=== PATIENT | male | born 1955 | race Caucasian/White ===

== ENCOUNTER 2024-07-05 13:28 | Outpatient (CLI) | payer MEDICARE, SELFPAY ==
--- NOTE | ~2024-07-05 | XR_ITS ---
EXAMINATION: XR lg joint inject/asp w image DATE: 07/05/2024 14:29 INDICATION: Primary osteoarthritis of the left hip TECHNIQUE: A time-out was performed to verify the patient's name, date of , and procedure to b e performed. The procedure including the risks, benefits, and alternatives was discussed with the pat ient. Risks discussed included bleeding and infection. The patient understood the risks and agreed to proceed. The skin overlying the left hip joint was prepped and draped in usual sterile fashion. An esthetic was administered with 1% lidocaine subcutaneously. A 22 G needle was advanced under fluoros copic guidance into the joint. Injection of 1 mL of Omnipaque 240 confirmed intra-articular position of the needle. Subsequently, injectate consisting of 5 mm a 4:1 mixture of 1% lidocaine: 80 mg/mL D epo-Medrol for a total dosage of 80 mg Depo-Medrol was instilled. Washout of contrast was seen confir mat intra-articular administration. The needle was removed and the entry site was cleaned and dresse d. There were no immediate complications. Fluoroscopy exposure time was 0.1 minutes. The total numbe r of images was 2. Total DAP was 1.1 Gycm^2 FINDINGS: Real-time fluoroscopy demonstrates the needle in the left hip joint. Patient's pain prior t o procedure:7/10. Patient's pain following the procedure: 0/10. IMPRESSION: 1. Successful left hip joint injection of local anesthetic and steroid with decrease in the patient's presenting pain. Reviewed, dictated and finalized at location A. IMPRESSION: 1. Successful left hip joint injection of local anesthetic and steroid with dec rease in the patient's presenting pain.
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
--- OUTSIDE RECORDS SUMMARY | 2024-07-05 13:41 | XMS_ITS | Data Portability ---
Author Organization [place] - [facility] [employer], Main Office Address [address] [place] [address] Assessment No assessment recorded. Plan of Treatment Reminders Order Date Submit Date Provider Last Modified By Organization Details Last Modified Time Details Appointments None record ed. Lab None record ed. Referral None record ed. Procedures None record ed. Surgeries None record ed. Imaging XR, ankle, 3 or more view 023 11/30/19 23 [facility], [address] [place] [address], [place], [address], 3 19:00:39 Medication Orders None record ed. Patient TargetsNo targets recorded. Patient InstructionsNo instructions recorded. Reason for Referral None Reported. Results Created Date Observation Date Name Description Value Unit Range Abnormal Flag Note LastModifiedBy Organization Detail LastModifiedTime 11/30/19 23 XR, ankle , 3 or more view [facility] [address] [facility] [place] [address] Patien t Name: DALJIT BURDEN Access ion #: [id number] Sex: M : 1955 2 Dictat ed By: Amanda Torres Attend ing Physic marilee: ELKHAT IB, RUNDA Orderi ng Physic marilee: ELKHAT IB, RUNDA Exam Date: 2022 14:05 PM Exam Name: XR ANKLE RT 3V+ Admitt ing Diagno sis(es ): CLINIC AL INDICA TION: Ankle pain TECHNI QUE: 3 radiog raphic views of the right ankle were obtain ed. Compar evaristo: None FINDIN GS: 0.7 cm ossifi c fragme ntatio n at the medial talar dome. The visual ized joint space is well mainta ined. The alignm ent is anatom ical. Soft tissue s are unrema rkable . IMPRES SCOTT: 0.7 cm OCD lesion at the medial talar dome. MRI could be obtain ed to [facility] janel gamino. Electr onical ly Signed by: Amanda Torres at 2022 17:59: 28 PM Page 1 [email or web address] [facility] (Imaging) [address] [place], [address], 11/30/2022 08:49:28 11/30/19 23 11/29/2022 XR, ankle , 3 or more view No observ ation record ed. [email or web address] [facility] [address] [place] [address], [address], 11/30/2022 18:03:30 04/02/19 25 04/02/2024 XR, knee, 3 view [facility] [address] [place], [place] [id number] Patien t Name: DALJIT BURDEN Access ion #: [id number] Sex: M : 1955 6 Locati on: RAD Attend ing Physic marilee: GEORGE MCNULTY Orderi Physic marilee: GEORGE MCNULTY Exam Date: 025 3:56 PM Exam Name: XR KNEE LT 3V Admitt ing Diagno sis(es ): RADIOL OGY REPORT - FINAL EXAM: XR KNEE LT 3V HISTOR Y: lt knee pain 68-yea r-old male with left knee pain and stiffn ess, histor y of menisc al tear 8 years ago, limite d range of motion . COMPAR EVARISTO: Radiog raphs dated 2016 TECHNI QUE: 3 views of the left knee were perfor med. FINDIN GS: No acute fractu re is identi fied about the left knee. There is medial compar tment joint space narrow ing. There are thick calcif icatio ns along the medial margin of the proxim al tibial metaph ysis. There is a parker ceps tendon insert ion enthes ophyte on the superi or pole of the patell a. There may be a small to modera te joint effusi on. Page 1 of 2 [facility] Patien t Name: DALJIT BURDEN Access ion #: [id number] Sex: M : 1955 6 Exam Date: 3:56 PM Exam Name: XR KNEE LT 3V Admitt ing Diagno sis(es ): IMPRES SCOTT: 1. No acute fractu re of the left knee. 2. Degene rative change s of the medial compar tment. 3. Sugges tion of old MCL injury . Create d and electr onical ly signed by: Guillermo ronquillo MD Signed Date: 4:29 PM (CT) Dictat ed by: Guillermo ronquillo MD DD: 4:29 PM (CT) DT: 4:29 PM (CT) Page 2 of 2 INTERFACE [facility] (Imaging) [address] [place], [address], 04/02/2024 17:31:53 04/02/19 25 04/02/2024 imagi ng/di vijayaos tic resul t No observ ation record ed. [facility] [address] [place], [address], 04/03/2024 00:04:24 Result Notes None recorded. Problems Name Problem SNOMED Code Status Onset Date Resolution Date Notes Provider Name and Address Organization Details Recorded Time History of calculus of kidney 378659300 Active 2022 Not Available [facility] 3 23:41:42 Pain of right ankle joint 40218001544699 106 Active 2022 Not Available [facility] 3 23:41:42 Problem Notes None recorded. Procedures Surgical History None recorded. Imaging Results Imaging Date Name Status LastModified by Organiz ation Details LastModified Time 11/29/2022 XR, ankle, 3 or more view completed [email or web address] (Imaging) [address] [place], [address], 11/30/2022 08:49:28 11/29/2022 XR, ankle, 3 or more view completed [email or web address] [facility] [address] [place] [address] Dr, [place], [address], 11/30/2022 18:03:30 04/02/2024 XR, knee, 3 view active INTERFACE [facility] (Imaging) [address] [place], [address], 04/02/2024 17:31:53 04/02/2024 imaging/diag nostic result active [facility] [address] [place], [address], 04/03/2024 00:04:24 Procedure Notes None recorded. Medical Equipment None Reported. Allergies Allergen ID Allergen Name Allergen Category Reaction Reaction Severity Criticality Documentation Date Start Date Code Code System Note Provider Name and Address Organization Details Recorded Time 05041 walnut allergeni c extract food Not available Not available Not available 04/20/2022 98184 0 RxNorm Not Available [facility] 3 07:35:38 19634 pecan nut food Not available Not available Not available 04/20/2022 71954 UNK Not Available [facility] 3 07:35:38 40320 cashew nut allergeni c extract food Not available Not available Not available 04/20/2022 97870 6 RxNorm Not Available [facility] 3 07:35:38 Medications Name Sig Start Date Stop Date Status Note LastModified by Organization Details LastModified Time sildenafil 100 mg tablet Take 1 tablet every day by oral route as needed. active Not Available Not Available No t Available omeprazole 20 mg capsule,obdulia yed release Take 1 capsule every day by oral route. active Not Available Not Available Not Avai lable Adult Low Dose Aspirin 81 mg tablet,delay ed release Take 1 tablet every day by oral route. active Not Available Not Available Not Avai lable magnesium active Not Available Not Available Not Avai lable loratadine 10 mg capsule Take by oral route. 020 active Not Available Not Available Not Avai lable Vitals Date Recorded Body weight Body mass index (BMI) Body height Body temperature Heart rate Oxygen saturation Oxygen saturation in Arterial blood by Pulse oximetry Systolic blood pressure Diastolic blood pressure Provider Name and Address Organization Details Last Updated DateTime 3 226906. 88 g 32.4 kg/m2 177.8 cm 97.5 [degF] 77 /min 97 % 97 % 138 mm[Hg] 82 mm[Hg] Anca perdomo CMA [facility] [employer] [facility] 14:38:06 Social History Question Answer Notes LastModified by [employer] Details LastModified Time Tobacco Smoking Status Never Smoker Anca Hernandez CMA null, [facility] [employer] [facility] 11/29/2022 14:41:10 What Is Your Level Of Caffeine Consumption? Heavy [email or web address] Information not available 11/29/2022 What Type Of Diet Are You Following? REGULAR [email or web address] Information not available 11/29/2022 Do You Have Any Dietary Restrictions? No [email or web address] Information not available 11/29/2022 Sex: Male Functional Status Question Answer Note LastModified by [employer] Details LastModified Time What is your level of alcohol consumption? Occasional [email or web address] Information not available 11/29/2022 What is your exercise level? Occasional [email or web address] Information not available 11/29/2022 Mental Status None recorded. Family History Relationship Description Onset Age of this Age Resolved Age Notes LastModified by Organization Details LastModified Time Father No current problems or disability [email or web address] Not available 1 14:39:48 Mother No current problems or disability [email or web address] Not available 1 14:39:48 Medical History No medical history recorded. Past Encounters Encounter ID Performer Location Encounter Start Date Encounter Closed Date Diagnosis/Indication Diagnosis SNOMED-CT Code Diagnosis ICD10 Code Diagnosis Note [id number] Delia Main MD [facility] [address] [place] [address] 11/29/2022 14:25:47 11/29/2022 14:56:50 Pain of right ankle joint [id number] 7958297 M25.571 Use ice/heat NSAIDs [facility] Health Concerns Section Related Observation LastModified by Organization Detai ls LastModified Time None Recorded Concern Status LastModified by Organization Details LastModified Time None Recorded Advance Directives Directive None Recorded Payers Encounter Date Sequence Insurance Name Policy Number Policy Gomez Covered Member ID Gomez Member ID Guarantor Name 11/29/2022 1 [facility] [id number] Daljit Araujo [id number] Daljit Araujo Notes Date Note Type Note Provider Name and Address Organization Details Recorded Time 11/29/2022 text/html Here today to re establish care. Right ankle is hurting and walks 8 miles at work 40 hours a week. If uses the scrub machine it vibrates it while pushing foot down on the pedal and it will hurt. No injury it just started to hurt. It is going on x 2 months. Taking vicoden for the pain and it helps. Uses rubs and does help.No other issues today Delia Main MD [address] [facility], [facility] [address], [place], [address], [place] - [facility] 11/29/2022 19:37:01
--- OUTSIDE RECORDS SUMMARY | 2024-07-05 13:41 | XMS_ITS | Referral Summary ---
Author Organization [facility] [address] [place] Address [address] [facility] 5th [place] [address] Care Team Providers Care Fuse Maker Name Role Phone Jagdish Zavala MD Primary Care Provider Allergies Active Allergy Reactions Criticality Noted Date Comments Fish Containing Products Swelling Medium 10/19/2011 Food Allergy Formula Swelling Medium 10/19/2011 All Nuts-Walnuts, Pecans, Cashews Medications aspirin 81 mg enteric coated tablet Take 1 tablet (81 mg total) by mouth daily Active omeprazole (PriLOSEC) 10 mg capsule Take 1 capsule (10 mg total) by mouth daily Active MULTIVITAMINS WITH FLUORIDE ORAL Take by mouth Active Active Problems Problem Noted Date Diagnosed Date Routine general medical exam ination at a health care facility 08/28/2023 Assessment & Plan (08/28/2023 4:50 PM CDT): Patient uses seatbelt. Patient said that he walks multiple miles on a daily basis. He does not smoke or drink alcohol. Patient said that he had colonoscopy in 2015. I do not have any record of that. He declined colonoscopy or colon cancer screening. Patient declined blood work but I ordered it in case he changes his mind. Patient declined all vaccines. Actinic keratoses 08/28/2023 Assessment & Plan (08/28/2023 4:49 PM CDT): Patient with actinic keratosis lesions in both forearms. I recommended that he sees a solution specialist for that but he declined. He understands that this condition is precancerous Immunizations Immunization Administration Dates Next Due Influenza, Quadrivalent, Spl it, Preservative Free, Intramuscular 10/18/2019,11/21/2016 Social History Tobacco Use Types Packs/Day Years Used Date Smoking Tobacco: Never Smokeless Tobacco: Never Tobacco Cessation:Counseling Given: Not Answered AUDIT-C Answer Date Recorded Q1: How often do you have a drink containing alc ohol? Monthly or less 08/28/2023 Q2: How many drinks containi ng alcohol do you have on a typical day when you are drinking? 1 or 2 08/28/2023 Q3: How often do you have si x or more drinks on one occasion? Never 08/28/2023 PHQ-2 Answer Date Recorded PHQ-2 Total Score (If total score is 3 or more points, staff should administer the PHQ-9) 0 08/28/2023 Personal Safety Answer Date Recorded Getting School Help Needed Not on file 07/24 Sex and Gender Information Value Date Recorded Sex Assigned at Not on file Legal Sex Male 1:50 PM CDT Gender Identity Not on file Sexual Orientation Not on file Last Filed Vital Signs Vital Sign Reading Time Taken Comments Blood Pressure 138/72 08/28/2023 4:08 PM CDT Pulse 70 08/28/2023 4:08 PM CDT Temperature 36.8 C (98.3 F) 08/28/2023 4:08 PM CDT Respiratory Rate 18 08/28/2023 4:08 PM CDT Oxygen Saturation 97% 08/28/2023 4:08 PM CDT Inhaled Oxygen Concentration - - Weight 103.9 kg (229 lb) 08/28/2023 4:08 PM CDT Height 177.8 cm (5' 10 ) 08/28/2023 4:08 PM CDT Body Mass Index 32.86 08/28/2023 4:08 PM CDT Plan of Treatment Not on file Insurance [facility] Care Teams Fuse Maker Relationship Specialty Start Date End Date Jagdish Zavala MD [address] [place] [address] [place] [address] PCP - General Internal Medicine 08/28/23
--- OUTSIDE RECORDS SUMMARY | 2024-07-05 13:41 | XMS_ITS | Clinical Summary ---
Author Organization [facility] [employer] Address [address] [place] [address] Care Team Providers Care Corporate Financial Analyst Name Role Phone Areli Epstein MD Primary Care Provider [phone] Source Comments [facility],non-owned Affiliates and Associated Physician Practices is amultiple site organization consisting of ambulatory clinics and hospital sitesin [place], [place], [place] and [place]. This disclosure is being madepursuant to the Care Everywhere program and may not contain all information available regarding this patient. Last updated 17.[facility] [employer] Allergies Active Allergy Reactions Criticality Noted Date Comments Fish Allergy 10/19/2011 Food Allergy Formula 10/19/2011 All Nuts-Walnuts, Pecans, Cashews Medications * Be aware that medications may not be up to date on this document. Alwaysverify current medications with the patient. omeprazole (PRILOSEC) 10 MG capsule Take 1 Cap by mouth once daily. Active divalproex DR (DEPAKOTE) 500 MG tabletIndicatio ns:Migraine headache without aura Take 1 Tab by mouth 2 times daily. 60 Tab 3 2 Active Additional Information Patient not taking.Reported on 03/29/2019 aspirin (ASPIRIN) 81 MG tablet Take 81 mg by mouth once daily Active magnesium 500 MG tablet Take 500 mg by mouth once daily Active loratadine (CLARITIN) 10 MG tablet Take 10 mg by mouth once daily Active Active Problems Problem Noted Date Diagnosed Date Migraine headache without aura 10/19/2011 Immunizations Immunization Administration Dates Next Due INFLUENZA VACCINE, QUADR. (F LUZONE; FLULAVAL; FLUARIX; AFLURIA QUADRIVALENT; 6MO+), 0.5 ML (IIV4) 10/18/2019,11/21/2016 Social History Tobacco Use Types Packs/Day Years Used Date Smoking Tobacco: Never Smokeless Tobacco: Never Alcohol Use Standard Drinks/Week Comments No 0 (1 standard drink = 0.6 oz pur e alcohol) Sex and Gender Information Value Date Recorded Sex Assigned at Not on file Legal Sex Male 2:07 PM COAT PADDER Gender Identity Not on file Sexual Orientation Not on file Last Filed Vital Signs Vital Sign Reading Time Taken Comments Blood Pressure 184/94 03/29/2019 4:27 PM COAT PADDER Pulse 79 03/29/2019 4:27 PM COAT PADDER Temperature 36.6 C (97.9 F) 03/29/2019 4:27 PM COAT PADDER Respiratory Rate 17 03/29/2019 4:27 PM COAT PADDER Oxygen Saturation 97% 03/29/2019 4:27 PM COAT PADDER Inhaled Oxygen Concentration - - Weight 95.3 kg (210 lb) 03/29/2019 4:27 PM COAT PADDER Height 177.8 cm (5' 10 ) 03/29/2019 4:27 PM COAT PADDER Body Mass Index 30.13 03/29/2019 4:27 PM COAT PADDER Plan of Treatment Health Maintenance Due Date Last Done Comments COLOGUARD (AGES 45-75) - COL ON CA SCREENING 1955 COLON MONITORING 1955 COLONOSCOPY - COLON CA SCREENING 1955 CT COLONOGRAPHY - COLON CA SCREENING 1955 Colorectal Cancer Screening 1955 FIT - COLON CA SCREENING 1955 FLEX SIG - COLON CA SCREENING 1955 LIPID TESTING 1955 HEPATITIS C SCREENING 10/18/1975 DTAP/TDAP/TD VACCINES (1 - Tdap) 1976 PNEUMOCOCCAL VACCINE 50+ (1 of 1 - PCV) 10/23/2007 ZOSTER VACCINE (1 of 2) 10/23/2007 SCREENING FOR DIABETES 03/29/2019 COVID-19 VACCINE (1 - 2023-2 5 season) 2023 DEPRESSION SCREENING 02/21/2024 INFLUENZA VACCINE (Season Ended) 2024 10/18/2019, 11/21/2016 Respiratory Syncytial Virus (RSV) Vaccine Pt: or over 60 yrs (1 - 1-dose 75+ series) 2032 HEPATITIS B VACCINE Aged Out No longe r eligible based on patient's age to complete this topic HIB VACCINE Aged Out No longer eligi ble based on patient's age to complete this topic HPV VACCINE Aged Out No longer eligi ble based on patient's age to complete this topic MENINGOCOCCAL (Group B) VACCINE SHARED DECISION-MAKING Aged Out No longer eligible based on patient's age to complete this topic MENINGOCOCCAL GROUPS A/C/Y/W VACCINE Aged Out No longer eligible b ased on patient's age to complete this topic Insurance [facility] Care Teams Corporate Financial Analyst Relationship Specialty Start Date End Date Areli Epstein MD PCP - General Family Medicine 09/21/11
--- OUTSIDE RECORDS SUMMARY | 2024-07-05 13:41 | XMS_ITS | Clinical Summary ---
Author Organization [facility] [address] Address [address] [facility] 5th [place] [address] Care Team Providers Care Diesel Electrician Name Role Phone Jagdish Zavala MD Primary [...] forearms. I recommended that he sees a manager clinical for that but he declined. He understands that this condition is precancerous Immunizations Immunization Administration Dates Next Due Influenza, Quadrivalent, Spl it, Preservative Free, Intramuscular 10/18/2019,11/21/2016 Surgical History Surgery Date Site/Laterality Comments KNEE SURGERY Social History Tobacco Use Types Packs/Day Years [...] on file Sexual Orientation Not on file Obstetrics History Last Filed Vital Signs Vital Sign Reading [...] 08/28/2023 4:08 PM CDT Plan of Treatment Health Maintenance Due Date Last Done Comments Hepatitis C Screening 1955 Prostate Cancer Screening-PSA 1955 Hepatitis B Screening 10/23/1975 Influenza Vaccine (#1) 2023 10/18/2019, 2016 Depression Screening 08/27/2024 08/28/2023 Fall Risk Assessment 08/27/2024 08/28/2023 Well Visit 65+ 08/27/2024 08/28/2023 Colon Cancer Screening-Colonoscopy Discontinued DTaP/Tdap/Td Vaccine Discontinued Pneumococcal vaccine 65+ Discontinued Zoster Vaccine Discontinued Insurance [facility] Care Teams Diesel Electrician Relationship Specialty Start Date End Date Jagdish Zavala MD [address] [facility] [address] [address] PCP - General Internal Medicine 08/28/23
== END 2024-07-05 13:29 | disposition home or self-care (01) ==
PROVIDERS: PCP Internal Medicine; Visit Provider Orthopaedic Surgery
DX: M16.12 Unilateral primary osteoarthritis, left hip (principal)
CPT/HCPCS: 20610; 77002; J1010; J2003; Q9966